=== PATIENT | female | born 1970 | race Two or more races ===

== ENCOUNTER 2018-06-19 08:43 | Emergency (ER) | payer OTHER ==
--- NOTE | 2018-06-19 09:02 | EDM.PDOC ---
ED HPI GENERAL MEDICAL PROBLEM - General Chief Complaint: Lower Extremity Injury/Pain Stated Complaint: L KNEE PAIN Time Seen by Provider: 06/19/18 08:55 Source of Information: Reports: Patient. Denies: Old Records (No [facility] records available) History Limitations: Reports: No Limitations - History of Present Illness INITIAL COMMENTS - FREE TEXT/NARRATIVE: The patient was brought to the emergency room via transport vehicle from [facility] for evaluation of a Workmen's Compensation injury, which occurred at about 08: 00 a.m. this morning. She was climbing a rack looking for a part number when as she was climbing down she misstepped and had an abduction twisting injury of her left knee. She has had only limited weightbearing since that time with no previous injury to this area. Ice packs were applied prior to arrival, however no other medications to this point. The patient did not take her ibuprofen this morning. She denies any fall, paresthesias, neurological deficits, neck/back pain, or other complaints or injuries. Her arthritis is otherwise stable. Her pain is 5/10 at rest with 10/10 with weightbearing. No recent history of abdominal pain, heartburn, nausea, diarrhea, melena, gross hematochezia, or any food intolerance, including fatty foods, etc.. The patient also denies any recent fever, cough, wheezing, dyspnea, etc.. Onset: Today, Sudden Onset Date: 06/19/18 Onset Time: 08:00 Duration: Constant Location: Reports: Lower Extremity, Left. 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 Denies: Cataract, Glaucoma, Hard of Hearing, Macular Degeneration, Otitis Media , Retinal Detachment Other HEENT History: Patient wears glasses and soft contact lenses. Cardiovascular History: Reports: None. Denies: High Cholesterol, Hypertension Musculoskeletal History: Reports: Arthritis, Osteoarthritis Endocrine/Metabolic History: Reports: Obesity/BMI 30+ Social & Family History - Tobacco Use Smoking Status *Q: Former Smoker Tobacco Use Within Last Twelve Months: Cigarettes Years of Tobacco use: 17 Packs/Tins Daily: 0.2 Packs/Tins Daily Comment: Started smoking at age 30 and stop smoking one week ago. Used Tobacco, but Quit: Yes Smoking Cessation Information Provided To Patient: No Second Hand Smoke Exposure: No Second Hand Smoke Education Provided: No - Living Situation & Occupation Living situation: Reports: (In the process of getting a divorce), with Family (3 children) Occupation: Employed (Powervation handler) Review of Systems - Review of Systems Review Of Systems: ROS reveals no pertinent complaints other than HPI. ED EXAM, GENERAL - Physical Exam Exam: See Below Exam Limited By: No Limitations General Appearance: Alert, WD/WN, No Apparent Distress Head: Atraumatic, Normocephalic Neck: Normal Inspection, Supple, Non-Tender, Full Range of Motion. No: Lymphadenopathy (L), Lymphadenopathy (R), Thyromegaly Respiratory/Chest: No Respiratory Distress, Lungs Clear, Normal Breath Sounds, No Accessory Muscle Use, Chest Non-Tender. No: Pleural Rub, Retractions Cardiovascular: Normal Peripheral Pulses, Regular Rate, Rhythm, No Edema, No Gallop, No JVD, No Murmur, No Rub. No: Gallop/S3, Gallop/S4, Friction Rub Peripheral Pulses: 2+: Radial (L), Radial (R), Dorsalis Pedis (L), Dorsalis Pedis (R) GI/Abdominal: Normal Bowel Sounds, Soft, Non-Tender, No Organomegaly, No Distention, No Abnormal Bruit, No Mass, Pelvis Stable, Other (obese). No: Guarding (Female) Exam: Deferred Rectal (Female) Exam: Deferred Back Exam: Normal Inspection, Full Range of Motion. No: CVA Tenderness (L), CVA Tenderness (R), Muscle Spasm Extremities: No Pedal Edema, Normal Capillary Refill, Joint Swelling (Minimal left knee), Leg Pain (As aboveleft knee), Limited Range of Motion (Left knee secondary to painmild), Other (Negative anterior drawer, Marvin's, pivot shift , and Allison's test). No: Pedal Edema, Yasir's Sign Neurological: Alert, Oriented, CN II-XII Intact, Normal Cognition, Normal Gait, Normal Reflexes, No Motor/Sensory Deficits Psychiatric: Normal Affect, Normal Mood Skin Exam: Warm, Dry, Intact, Normal Color, No Rash. No: Diaphoretic, Wound/ Incision Lymphatic: No Adenopathy Course - Vital Signs Last Recorded V/S: Last Vital Signs Temp 37.2 C 06/19/18 08:45 Pulse 87 06/19/18 08:45 Resp 14 06/19/18 08:45 BP 141/73 H 06/19/18 08:45 Pulse Ox 99 06/19/18 08:45 Vital Signs - 24 hr 06/19/18 08:45 Temperature [ 37.2 C Temporal] Pulse, 87 Peripheral [ Pulse Oximetry] Respiratory 14 Rate Blood Pressure 141/73 H [Right Upper Arm] O2 Sat by Pulse 99 Oximetry - Orders/Labs/Meds Orders: Active Orders 24 hr Category Date Time Status Knee 3V Lt [CR] Stat Exams 06/19/18 09:02 Stop Req Knee Min 4V Lt [CR] Stat Exams 06/19/18 09:02 Ordered Durable Medical Equipment for Discharge [DME for Oth 06/19/18 09:07 Ordered Discharge] [COMM] Routine Durable Medical Equipment for Discharge [DME for Oth 06/19/18 09:07 Ordered Discharge] [COMM] Routine Obtain Past Medical Record [OM.PC] Routine Oth 06/19/18 09:02 Active Labs: None Meds: Medications Discontinued Medications Generic Name Dose Route Start Last Admin Trade Name Freq PRN Reason Stop Dose Admin Ketorolac Tromethamine 60 mg 06/19/18 09:06 06/19/18 09:19 Toradol IM 06/19/18 09:07 60 mg ONETIME ONE Administration - Radiology Interpretation Free Text/Narrative:: X-rays of the left knee, complete, shows only mild osteoarthritic changes with no significant effusion, dislocation, fracture, etc. Departure - Departure Time of Disposition: 08:45 Disposition: Home, Self-Care 01 Condition: Good Clinical Impression: Knee sprain, Osteoarthritis - Discharge Information *PRESCRIPTION DRUG MONITORING PROGRAM REVIEWED*: Not Applicable *COPY OF PRESCRIPTION DRUG MONITORING REPORT IN PATIENT JENNYFER: Not Applicable Instructions: Crutch Use, Adult, [id number], Knee Sprain, Adult, [id number] Referrals: PCP,Not In Area [Primary Care Provider] - Forms: ED Department Discharge Additional Instructions: 1. Followup with your regular provider in 10-14 days as directed for reevaluation and possible repeat x-rays of your left knee. Bring these discharge instructions with you to that visit. 2. BenGay or equivalent, heating pad, and/or ice packs as directed. 3. Tylenol 650 mg by mouth every 4 hours and/or OTC ibuprofen 2-3 tabs by mouth every 6 hours with food as directed./needed. You may stagger these medications for 48-72 hours only, which essentially means that you are receiving a pain medication about every 2 hours. Next dose of ibuprofen in 6 hours secondary to medications given in the emergency room 4. Work excuse- See Form 5. Wear knee sleep at all times with exception of bathing with crutches to be used as directed with limited weightbearing of the left leg as discussed 6. Congratulations about stopping smoking 7. Immediately after this visit verify that your cellular telephone's voicemail has been activated and is empty. Also verify that your home telephone 's answering machine is operating properly and has space to receive messages. Note that it is sometimes necessary for us to be able to contact you at a later date to discuss your medical care. 8. Please remember that we are ALWAYS here for you and want to answer any questions you may have. Feel free to call the hospital any time and we call you back OLI. - Problem List & Annotations (1) Knee sprain SNOMED Code(s): 46673993 Code(s): S83.90XA - SPRAIN OF UNSPECIFIED SITE OF UNSPECIFIED KNEE, INIT ENCNTR Status: Acute Priority: High Onset Date: 06/19/18 Annotation/ Comment:: Various therapeutic options were discussed with the patient agreeing to IM Toradol, crutches, and knee sleeve. [place]cat work excuse and Workmen's Compensation forms were completed. Activity restrictions, etc. were discussed. Close follow-up by regular provider with consideration of repeat x-rays, MRI of the left knee, orthopedic referral, etc. depending on her clinical course. Qualifiers: Encounter type: initial encounter Involved ligament of knee: other ligament Laterality: left Qualified Code(s): S83.8X2A - Sprain of other specified parts of left knee, initial encounter (2) Osteoarthritis SNOMED Code(s): 737571529 Code(s): M19.90 - UNSPECIFIED OSTEOARTHRITIS, UNSPECIFIED SITE Status: Chronic Priority: Medium Annotation/Comment:: Otherwise stable by history. Qualifiers: Osteoarthritis location: multiple joints Osteoarthritis type: primary Qualified Code(s): M15.0 - Primary generalized (osteo)arthritis - Problem List Review Problem List Initiated/Reviewed/Updated: Yes - My Orders Last 24 Hours: My Active Orders 06/19/18 09:02 Knee 3V Lt [CR] Stat Knee Min 4V Lt [CR] Stat Obtain Past Medical Record [OM.PC] Routine 06/19/18 09:07 Durable Medical Equipment for Discharge [DME for Discharge] [COMM] Routine Durable Medical Equipment for Discharge [DME for Discharge] [COMM] Routine - Assessment/Plan Last 24 Hours: My Active Orders 06/19/18 09:02 Knee 3V Lt [CR] Stat Knee Min 4V Lt [CR] Stat Obtain Past Medical Record [OM.PC] Routine 06/19/18 09:07 Durable Medical Equipment for Discharge [DME for Discharge] [COMM] Routine Durable Medical Equipment for Discharge [DME for Discharge] [COMM] Routine Assessment:: As above Plan: As above. Extensive precautions were given to the patient, who is in agreement with the treatment plan. See Patient Instructions for further treatment and plan.
[2018-06-19] MEDS ORDERED: Ketorolac 60 MG/2 ML SDV IM ONE (09:06)
== END 2018-06-19 10:04 | disposition home or self-care (01) ==
LOC: LL.ED 08:43
DX: S83.92XA Sprain of unspecified site of left knee, initial encounter (principal); M17.12 Unilateral primary osteoarthritis, left knee; Z87.891 Personal history of nicotine dependence; I10 Essential (primary) hypertension; E78.00 Pure hypercholesterolemia, unspecified; W10.9XXA Fall (on) (from) unspecified stairs and steps, initial encounter; Y99.0 Civilian activity done for income or pay
CPT/HCPCS: 73562; 96372; 99283; J1885